=== PATIENT | male | born 1985 | race Caucasian/White ===

== ENCOUNTER → 2017-07-03 11:24 | Outpatient (CLI) | payer BC, SELFPAY ==
--- NOTE | 2017-07-03 11:29 | XR_ITS ---
XR foot LT min 3V HISTORY: Pain following injury ITS.REASON: SPRAIN OF LT FOOT ORDERING PHYSICIAN: Marvin Delaney MD PATIENT AGE: 31 years COMPARISON: None FINDINGS: No fracture or dislocation. No lytic or blastic change. There is normal mineralization.. The joint spaces are well-preserved. No significant degenerative/arthritic changes. No erosive changes evident. IMPRESSION: Negative, no acute finding
== END ==
PROVIDERS: PCP Family Medicine; Visit Provider Family Medicine
DX: S93.602A Unspecified sprain of left foot, initial encounter (principal)
CPT/HCPCS: 73630

== ENCOUNTER → 2017-08-11 09:00 | Outpatient (CLI) | payer BC, SELFPAY ==
--- NOTE | 2017-08-11 09:01 | XR_ITS ---
Left foot Weightbearing Foot 3 Views HISTORY: Pain ORDERING PHYSICIAN: Yina Johnston DPM PATIENT AGE: 32 years COMPARISON: 07-03-17 FINDINGS: There is now evidence of a healing fracture involving the distal shaft of the fourth metatarsal. This was not visible on the previous exam even in retrospect. Callus formation is present at this region. There is pes planus. IMPRESSION: Healing nondisplaced fracture of the distal shaft of the fourth metatarsal
--- NOTE | 2017-08-11 09:01 | XR_ITS ---
Right foot: Weightbearing Foot 3 Views HISTORY: Pain ORDERING PHYSICIAN: Yina Johnston DPM PATIENT AGE: 32 years COMPARISON: None FINDINGS: No fracture or dislocation. No lytic or blastic change. There is normal mineralization.. The joint spaces are well-preserved. No significant degenerative/arthritic changes. No erosive changes evident. IMPRESSION: Negative, no acute finding
== END ==
PROVIDERS: Visit Provider Podiatrist
DX: M79.673 Pain in unspecified foot (principal)
CPT/HCPCS: 73630

== ENCOUNTER → 2017-09-10 07:59 | Outpatient (CLI) | payer BC, SELFPAY ==
--- NOTE | 2017-09-10 07:59 | XR_ITS ---
XR foot wt bearing LT 3V HISTORY: Foot pain, follow-up fracture ITS.REASON: foot pain ORDERING PHYSICIAN: Yina Johnston DPM PATIENT AGE: 32 years COMPARISON: 08/11/2017 FINDINGS: Overall no change in the healing fracture of the fourth metatarsal distal shaft with overlying callus formation. Fracture line is still visible although less apparent on the oblique view. There is good alignment. No other significant anomalies are evident. IMPRESSION: Good alignment healing fracture of the fourth metatarsal tarsal
== END ==
PROVIDERS: Visit Provider Podiatrist
DX: M79.672 Pain in left foot (principal)
CPT/HCPCS: 73630

== ENCOUNTER → 2017-10-14 08:46 | Outpatient (CLI) | payer BC, SELFPAY ==
--- NOTE | 2017-10-14 08:48 | XR_ITS ---
XR foot wt bearing LT 3V HISTORY: Follow-up fracture ITS.REASON: fracture follow up ORDERING PHYSICIAN: Yina Johnston DPM PATIENT AGE: 32 years COMPARISON: 09/10/2017 FINDINGS: Healing fracture involving the distal shaft of the fourth metatarsal with callus formation. Fracture line is somewhat less apparent compared to the previous exam. There is good alignment. IMPRESSION: Good alignment healing fourth metatarsal fracture
== END ==
PROVIDERS: Visit Provider Podiatrist
DX: S92.345A Nondisplaced fracture of fourth metatarsal bone, left foot, initial encounter for closed fracture (principal)
CPT/HCPCS: 73630

== ENCOUNTER → 2017-12-15 16:19 | Outpatient (CLI) | payer BC, SELFPAY ==
--- NOTE | 2017-12-15 16:20 | XR_ITS ---
XR foot wt bearing LT 3V HISTORY: Follow-up fracture ITS.REASON: pain ORDERING PHYSICIAN: Yina Johnston DPM PATIENT AGE: 32 years COMPARISON: None FINDINGS: Cortical thickening involving distal shaft of the fourth tarsal consistent with healed fracture. Fracture line no longer visible. Flexion deformity involving the second toe. IMPRESSION: Healed fracture with good alignment fourth metatarsal
== END ==
PROVIDERS: Visit Provider Podiatrist
DX: M79.672 Pain in left foot (principal)
CPT/HCPCS: 73630

== ENCOUNTER → 2019-03-24 09:16 | Outpatient (CLI) | payer BC, SELFPAY ==
--- NOTE | 2019-03-24 09:26 | XR_ITS ---
PROCEDURE: XR FOOT WT BEARING LT 3V CLINICAL INDICATION: LT FOOT PAIN COMPARISON: [id number] XR foot wt bearing LT 3V from 08/11/2017 FTWBL3 XR foot wt bearing LT 3V from 09/10/2017 FTWBL3 XR foot wt bearing LT 3V from 10/14/2017 FTWBL3 XR foot wt bearing LT 3V from 12/15/2017 FINDINGS: The there is some cortical thickening involving the mid and distal shaft of the 4th metatarsal consistent with an old fracture similar compared to the previous exam of 12/15/2017. No acute fracture or dislocation is evident. No lytic or blastic change. Normal alignment. Other findings:None. IMPRESSION: Old 4th metatarsal fracture. No change with no acute finding Dictated by: Israel Trent MD 03/24/2019 15:51 Electronically signed by Israel Trent MD in [place] 03/24/2019 15:51
--- NOTE | 2019-03-24 09:26 | XR_ITS ---
PROCEDURE: XR ANKLE WT BEARING RT MIN 3V CLINICAL INDICATION: RT ANKLE SWELLING COMPARISON: No exams were available for comparison FINDINGS: No fracture, dislocation, lytic change, or blastic change evident. No significant degenerative change IMPRESSION: Negative right ankle Dictated by: Israel Trent MD 03/24/2019 15:52 Electronically signed by Israel Trent MD in [place] 03/24/2019 15:52
== END ==
PROVIDERS: PCP Family Medicine; Visit Provider Nurse Practitioner Family
DX: M79.672 Pain in left foot (principal); M25.471 Effusion, right ankle
CPT/HCPCS: 73610; 73630

== ENCOUNTER 2020-12-22 16:02 | Emergency (ER) | payer BC, SELFPAY ==
[2020-12-22 16:50] VITALS: BP 138/83; PULSE 78; RESP 18; TEMP 36.8; O2SAT 98; BMI 39.5
[2020-12-22 17:18] VITALS: BP 138/83; PULSE 78; RESP 18; TEMP 36.8; O2SAT 98
--- NOTE | 2020-12-22 17:22 | HMH.EDUTC ---
[facility] [place] Disposition Clinical Impression: Encounter for laboratory testing for COVID-19 virus Disposition: Home, Self-Care Condition on Discharge: Good Instructions: DI for COVID-19 (Suspected or Confirmed ), Coronavirus Disease 2019, Preventing the Spread of Coronavirus Discharge Instructions Additional Instructions: *Monitor Temp, Over the counter Motrin or Tylenol as directed/as needed Tylenol every 4 hours and Motrin every 6 hours (as long as your family doctor has told you that you can take it) for fever or pain. and straight to ER if unable to lower temp less than 101.0 after medication given Follow up IMMEDIATELY for new or worsening symptoms or no Noticeable improvement over the next 48-72 hours. 911 for difficulty breathing or swallowing You were tested for today for COVID19 your test result should be back in the next 24-48 hours, you may call to the [facility] to see if your test results are back in the next 48 hours [phone] [facility] hours are 9am-9pm You was given a handout with instructions for Self Quarantine and Self isolation for while you wait on test results and what to do if they are positive If you are positive the Health Dept will be contacting you also Make sure to take your Vitamins Vit. C Vit D and Zinc if you can take them Referrals: Anna Arias APRN [Primary Care Provider] - As needed Forms: Work/School Release Time of Disposition: 17:23 Medical Decision Making - Jaylan Inquiry Pt receiving controlled substance: No Jaylan was queried for this patient: No Vital Signs: 12/22/20 16:50 12/22/20 17:18 Temperature 98.3 F 98.3 F Temperature Source Oral Pulse Rate 78 Pulse Rate [Right Brachial] 78 Respiratory Rate 18 18 Blood Pressure 138/83 Blood Pressure [Right Arm] 138/83 Blood Pressure Mean [Right Arm] 101 Blood Pressure Source [Right Arm] Automatic Cuff Blood Pressure Position [Right Arm] Sitting 02 Sat by Pulse Oximetry 98 Oxygen Delivery Method Room Air Orders (Tests/Meds): ORDERS Category Date Time Status Covid-19 Nasal PCR ([facility]) Routine Lab 12/22/20 16:[address] [facility] [place] HPI - General Stated complaint: wants covid test Time Seen by Provider: 12/22/20 17:22 Mode of Arrival: Ambulatory Source of Information: Patient Limitations: No Limitations Description of Symptoms (Recalled from Triage Doc. by RN): PATIENT REQUESTING COVID TEST. 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 and lives with her State that he wanted to get tested for COVID Denies any sympotms - Related Data Allergies Allergy/AdvReac Type Severity Reaction Status Date / Time No Known Allergies Allergy Verified 12/07/18 17:20 - Worker's Comp Is this a Worker's Comp case?: No [facility] History - Hepatitis A Screen Drug use history?: No High risk sexual behaviors?: No History of sexually transmitted infection?: No Currently employed?: No Childcare worker?: No Do you have indoor plumbing?: Yes Do you have electricity?: Yes Attestation statement:: This patient has been screened for Hepatitis A risk factors. I have reviewed the patient's past medical history: Yes Medical History: Reports:: Hypertension Denies:: Asthma, Cancer, Chronic Obstructive Pulmonary Disease (COPD), Diabetes Mellitus Type 1, Diabetes Mellitus Type 2, Hyperlipidemia, Myocardial Infarction Other Surgeries: Yes: No Previous Surgery Amputation: No Fractures: Yes (4 TH METATARSAL) - Social History Smoking Status: Former smoker Tobacco Type: cigarettes # Packs/Day (cigarettes): 0 #Yrs smoked (if former smoker): 14 Alcohol Intake: never Alcohol Intake Frequency:: holidays/special occasion
== END 2020-12-22 17:31 | disposition home or self-care (01) ==
PROVIDERS: Emergency Provider Nurse Practitioner; PCP Nurse Practitioner Family
DX: Z20.822 Contact with and (suspected) exposure to COVID-19 (principal); Z87.891 Personal history of nicotine dependence
CPT/HCPCS: 99202; G0463; U0003

== ENCOUNTER 2021-01-07 10:32 | Emergency (ER) | payer BC, SELFPAY ==
--- NOTE | 2021-01-07 12:16 | PC.NURSE ---
called no answer
[2021-01-07 12:22] VITALS: BP 130/85; PULSE 84; RESP 16; TEMP 37.4; O2SAT 98; BMI 39.5
--- NOTE | 2021-01-07 13:42 | HMH.EDUTC ---
[facility] [place] Disposition Clinical Impression: Encounter for laboratory testing for COVID-19 virus Disposition: Home, Self-Care Condition on Discharge: Good Instructions: DI for Allergic Rhinitis, DI for COVID-19 (Suspected or Confirmed ), Preventing the Spread of Coronavirus Discharge Instructions Additional Instructions: *Monitor Temp, Over the counter Motrin or Tylenol as directed/as needed Tylenol every 4 hours and Motrin every 6 hours (as long as your family doctor has told you that you can take it) for fever or pain. and straight to ER if unable to lower temp less than 101.0 after medication given *Warm salt water gargles may help to soothe the throat *Throat Lozenges *Warm fluids like tea with honey may help to soothe the throat *Sleep elevated *Humidifier/Vaporizer *Flonase 2 sprays in each nostril daily but be aware that it may take 2-3 days before you notice improvement Follow up IMMEDIATELY for new or worsening symptoms or no Noticeable improvement over the next 48-72 hours. 911 for difficulty breathing or swallowing You were tested for today for COVID19 your test result should be back in the next 24-48 hours, You was given instructions [facility] for your results if you do not have internet access you may call the [facility] You was given a handout with instructions for Self Quarantine and Self isolation for while you wait on test results and what to do if they are positive If you are positive the Health Dept will be contacting you also Make sure to take your Vitamins Vit. C Vit D and Zinc if you can take them Prescriptions: Fluticasone Propionate [Flonase 50mcg nasal spray 16gm] 1 spr NS DAILY #1 unspec Transmission Status: Pending to [id number] Referrals: Anna Arias APRN [Primary Care Provider] - As needed Forms: Work/School Release Time of Disposition: 13:46 Medical Decision Making - Jaylan Inquiry Pt receiving controlled substance: No Jaylan was queried for this patient: No Vital Signs: 01/07/21 12:22 Temperature 99.3 F Temperature Source Oral Pulse Rate [Radial] 84 Respiratory Rate 16 Blood Pressure [Right Arm] 130/85 Blood Pressure Mean [Right Arm] 100 Blood Pressure Position [Right Arm] Sitting 02 Sat by Pulse Oximetry 98 Oxygen Delivery Method Room Air Orders (Tests/Meds): ORDERS Category Date Time Status Covid-19 Nasal PCR ([facility]) Routine Lab 01/07/21 12:19 Received Covid-19 Nasal PCR ([facility]) Routine Lab 01/07/21 12:19 Received [facility] [place] HPI - General Stated complaint: wants Covid test Time Seen by Provider: 01/07/21 13:42 Mode of Arrival: Ambulatory Source of Information: Patient Limitations: No Limitations Description of Symptoms (Recalled from Triage Doc. by RN): to [facility] [place] with c/o headache, congestion, cough, exposed to covid, pt also c/o rt ear pain starting yesterday. HEENT Symptoms (Recalled from RN notes): No Resp Symptoms (Recalled from RN notes): Yes Skin Symptoms (Recalled from RN notes): No MS Symptoms (Recalled from RN notes): No Functional Status (Recalled from RN notes): na - History of Present Illness Provider Complaint: Patient states that he has been exposed to someone with COVID State that he has been having headache, nasal congestion and pain in his right ear States that pain in ear started yesterday and he wanted to get it checked - Related Data Previous Rx's Medication Instructions Recorded Fluticasone Propionate [Flonase 1 spr NS DAILY #1 unspec 01/07/21 50mcg nasal spray 16gm] Allergies Allergy/AdvReac Type Severity Reaction Status Date / Time No Known Allergies Allergy Verified 12/07/18 17:20 - Worker's Comp Is this a Worker's Comp case?: No [facility] History - Hepatitis A Screen Drug use history?: No High risk sexual behaviors?: No History of sexually transmitted infection?: No Currently employed?: No Childcare worker?: No Do you have indoor plumbing?: Yes Do you have electricity?: Yes Attestation statela
[2021-01-07 13:46] VITALS: BP 130/85; PULSE 84; RESP 16; TEMP 37.4; O2SAT 98
== END 2021-01-07 13:50 | disposition home or self-care (01) ==
PROVIDERS: Emergency Provider Nurse Practitioner; PCP Nurse Practitioner Family
DX: U07.1 COVID-19 (principal)
CPT/HCPCS: 99202; G0463; U0003

== ENCOUNTER 2021-11-07 13:01 | Emergency (ER) | payer BC, SELFPAY ==
--- NOTE | 2021-11-07 13:16 | XR_ITS ---
FINAL REPORT CLINICAL HISTORY: pain; no known injury. pt states that the lateral aspect of his wrist has been hurting more in the last 2 days. FINDINGS: 3 views of the right wrist were obtained. There is no acute fracture or dislocation. The joint spaces are intact. There is no soft tissue abnormality. IMPRESSION: No acute abnormality. Reviewed, Interpreted and Dictated by Ricco Espinoza III, MD Transcribed by Yang Woods Authenticated and [facility]
[2021-11-07 13:19] VITALS: BP 142/86; PULSE 71; RESP 18; TEMP 36.8; O2SAT 97; BMI 39.9
--- NOTE | 2021-11-07 13:22 | HMH.EDUTC ---
[facility] [place] Disposition Clinical Impression: Right wrist tendonitis, Right wrist pain Disposition: Home, Self-Care Condition on Discharge: Good Instructions: Tendinopathy, DI for Tendinitis Additional Instructions: Rest the extremity, Elevate the extremity as tolerated while you are resting. Take ibuprofen for pain. I sent in a prescription to your pharmacy. Follow up with Dr. Moreno (orthopedics). I put in a referral but you need to call his office and schedule an appointment. Follow up with your regular doctor. GO TO THE ER FOR ANY WORSENING SYMPTOMS Prescriptions: Ibuprofen [Ibuprofen 800mg Tablet] 800 mg PO Q8HP PRN #30 tab PRN Reason: Moderate Pain Transmission Status: Received by [id number] Referrals: Provider,MD Wild [Primary Care Provider] - Fidel Moreno MD [Staff Physician] - Forms: Work/School Release Time of Disposition: 13:56 Medical Decision Making - Medical Records Medical records reviewed: No: I reviewed the patient's medical records. - Jaylan Inquiry Pt receiving controlled substance: No Vital Signs: 11/07/21 13:19 11/07/21 14:01 Temperature 98.2 F 98.2 F Temperature Source Oral Pulse Rate 71 Pulse Rate [Left] 71 Respiratory Rate 18 18 Blood Pressure 142/86 H Blood Pressure [Right Arm] 142/86 H Blood Pressure Mean [Right Arm] 104 02 Sat by Pulse Oximetry 97 - Radiology Data #1 Image(s): Wrist Image Reviewed: Yes I reviewed the patient's radiology image, Yes I have reviewed radiologist's interpretation Preliminary Findings: Normal/NAD, No Fracture Seen FINAL REPORT CLINICAL HISTORY: pain; no known injury. pt states that the lateral aspect of his wrist has been hurting more in the last 2 days. FINDINGS: 3 views of the right wrist were obtained. There is no acute fracture or dislocation. The joint spaces are intact. There is no soft tissue abnormality. IMPRESSION: No acute abnormality. Reviewed, Interpreted and Dictated by Ricco Espinoza III, MD Transcribed by Yang Woods Authenticated and [facility] HPI - General Stated complaint: rt wrist pain Time Seen by Provider: 11/07/21 13:28 Description of Symptoms (Recalled from Triage Doc. by RN): patient comes in today with complaints of right wrist pain. patient has had no known injury. pain began thursday. HEENT Symptoms (Recalled from RN notes): No Resp Symptoms (Recalled from RN notes): No Skin Symptoms (Recalled from RN notes): No MS Symptoms (Recalled from RN notes): Yes Functional Status (Recalled from RN notes): wnl - History of Present Illness Provider Complaint: He states that he has had right wrist pain for the past 2 days. He denies any known injury. He states that it just started him hurting when he was using it a lot at home. - Related Data Previous Rx's Medication Instructions Recorded Fluticasone Propionate [Flonase 1 spr NS DAILY #1 unspec 01/07/21 50mcg nasal spray 16gm] Ibuprofen [Ibuprofen 800mg 800 mg PO Q8HP PRN #30 tab 11/07/21 Tablet] Allergies Allergy/AdvReac Type Severity Reaction Status Date / Time No Known Allergies Allergy Verified 11/07/21 13:23 - Worker's Comp Is this a Worker's Comp case?: No [facility] History - Hepatitis A Screen Attestation statement:: This patient has been screened for Hepatitis A risk factors. I have reviewed the patient's past medical history: Yes Medical History: Reports:: Hypertension Denies:: Asthma, Cancer, Chronic Obstructive Pulmonary Disease (COPD), Diabetes Mellitus Type 1, Diabetes Mellitus Type 2, Hyperlipidemia, Myocardial Infarction Other Surgeries: Yes: No Previous Surgery Amputation: No Fractures: Yes (4 TH METATARSAL) - Social History Smoking Status: Former smoker Tobacco Type: cigarettes # Packs/Day (cigarettes): 0 #Yrs smoked (if former smoker): 14 Alcohol Intake: ne
[2021-11-07 14:01] VITALS: BP 142/86; PULSE 71; RESP 18; TEMP 36.8
== END 2021-11-07 14:02 | disposition home or self-care (01) ==
PROVIDERS: Emergency Provider Nurse Practitioner Family
DX: M67.833 Other specified disorders of tendon, right wrist (principal)
CPT/HCPCS: 29125; 73110; 99212; G0463

== ENCOUNTER 2022-03-28 15:35 | Emergency (ER) | payer BC, SELFPAY ==
[2022-03-28 16:07] VITALS: PULSE 67; RESP 16; TEMP 37.1; O2SAT 100; BMI 39.1
--- NOTE | 2022-03-28 16:49 | EXP.UTC ---
Discharge Plan Disposition Patient Disposition: Home, Self-Care Condition: Good Prescriptions Prescriptions: New amoxicillin [amoxicillin] 500 mg tablet 500 mg PO TID 10 Days Qty: 30 0RF methylprednisolone 4 mg Tablets,Dose Pack 4 mg PO DIRECTED Qty: 21 0RF igrnktdiugzklco-woiwdmneu-OV [Bromfed DM] 2-30-10 mg/5 mL Syrup 5 ml PO Q6H PRN (Reason: Cough) Qty: 240 0RF No Action famotidine 20 mg Tablet 20 mg PO DAILY aspirin 81 mg Tablet,Chewable 81 mg PO DAILY levocetirizine [Xyzal] 5 mg Tablet 5 mg PO DAILY Referrals Follow up/Referrals: Geovanny White MD [Primary Care Provider] - See instructions Activity Restrictions/Add. Instructions Additional Instructions/Restrictions: Drink plenty of fluids. Take tylenol or ibuprofen for pain or fever. Follow up with your regular doctor. GO TO THE ER FOR ANY WORSENING SYMPTOMS Clinical Impressions Clinical Impression: Otitis media Instructions Patient Instructions: Middle Ear Infection Discharge ED Provider: Judd Bhatia [facility] General Stated complaint: RT ear pain Mode of Arrival: Ambulatory Source of Information: Patient Limitations: No Limitations Time Seen by Provider: 03/28/22 16:49 Description of Symptoms (Recalled from Triage Doc. by RN): pt c/o pain in his right ear that runs down into his neck, behind his ear and eye HEENT Symptoms (Recalled from RN notes): Yes (right ear pain) Resp Symptoms (Recalled from RN notes): No Skin Symptoms (Recalled from RN notes): No MS Symptoms (Recalled from RN notes): No Functional Status (Recalled from RN notes): na History of Present Illness Provider Complaint: He c/o bilateral ear pain for the past 4 days. HIs right ear is worse than his left. Related Data Home Medications Medication Instructions Recorded Confirmed aspirin 81 mg chewable tablet 81 mg PO DAILY VARICOSE VEINS 03/28/22 03/28/22 famotidine 20 mg tablet 20 mg PO DAILY GERD 03/28/22 03/28/22 levocetirizine 5 mg tablet (Xyzal) 5 mg PO DAILY Allergy symptoms 03/28/22 03/28/22 Previous Rx's Medication Instructions Recorded amoxicillin 500 mg tablet 500 mg PO TID 10 days #30 tabs 03/28/22 exiqonnsnwmodlj-gfwabjuqlxnynmf-EK 5 ml PO Q6H PRN Cough #240 mL 03/28/22 2 mg-30 mg-10 mg/5 mL oral syrup (Bromfed DM) methylprednisolone 4 mg tablets in 4 mg PO DIRECTED #21 tabs 03/28/22 a dose pack Allergies Allergy/AdvReac Type Severity Reaction Status Date / Time No Known Allergies Allergy Verified 11/07/21 13:23 Worker's Comp Is this a Worker's Comp case?: No PFSH PFSH Medical History Anxiety Kidney stone Urinary tract infection Social History Smoking Status: Former smoker pack-years: 14 alcohol intake: never current occupational status: employed Travel in the last 8 weeks: None ROS Obtained: Yes All systems reviewed & no additional complaints except as documented Constitutional Constitutional: Denies chills, Reports fever(s) and Reports poor appetite Eyes Eyes: Denies eye discharge ENT Ears, Nose, Mouth, and Throat: Denies ear discharge, Reports otalgia, Denies hearing loss, Denies sinus pain and Reports sore throat Cardiovascular Cardiovascular: Denies chest pain and Denies dyspnea Respiratory Respiratory: Denies chest congestion, Reports cough and Denies dyspnea Gastrointestinal Gastrointestingal: Denies abdominal pain, diarrhea, nausea or vomiting Musculoskeletal Musculoskeletal: Denies arthralgias Integumentary/Breasts Skin/Breast: Denies rash Physical Exam General General appearance: alert and in no apparent distress Head Head exam: atraumatic, normocephalic and normal inspection Eye Eye exam: Present normal appearance, PERRL and EOMI ENT ENT exam: Present mucous membranes moist and normal external ear exam Expanded ENT Exam TM/Canal exam: Bilateral TM: joseph
[2022-03-28 16:51] VITALS: BP 0/0; PULSE 67; RESP 16; TEMP 37.1; O2SAT 100
== END 2022-03-28 17:52 | disposition home or self-care (01) ==
PROVIDERS: Emergency Provider Nurse Practitioner Family; PCP Family Medicine
DX: H66.90 Otitis media, unspecified, unspecified ear (principal)
CPT/HCPCS: 99212; G0463

== ENCOUNTER 2022-08-02 06:23 | Emergency (ER) | payer BC, SELFPAY ==
[2022-08-02] VITALS (9 sets, daily range): BP systolic 121–148; BP diastolic 69–82; PULSE 61–98; RESP 16–17; TEMP 36.6; O2SAT 93–100; BMI 42.0
--- NOTE | 2022-08-02 06:44 | CT_ITS ---
PROCEDURE INFORMATION: Exam: CT Abdomen And Pelvis With Contrast Exam date and time: 08/02/2022 7:09 AM Age: 36 years old Clinical indication: Abdominal pain; Generalized; Additional info: Abd pain TECHNIQUE: Imaging protocol: Computed tomography of the abdomen and pelvis with contrast. Radiation optimization: All CT scans at this facility use at least one of these dose optimization techniques: automated exposure control; mA and/or kV adjustment per patient size (includes targeted exams where dose is matched to clinical indication); or iterative reconstruction. Contrast material: ISOVUE; Contrast volume: 75 ml; Contrast route: IV; REPORTING DATA: Count of CT and Cardiac NM exams in prior 12 months: This patient has received 0 known CTs and 0 known cardiac nuclear medicine studies in the 12 months prior to the current study. COMPARISON: No relevant prior studies available. FINDINGS: Diaphragm: A small hiatal hernia is present. Liver: Normal. No mass. Gallbladder and bile ducts: Multiple small stones in the gallbladder neck, the gallbladder is otherwise unremarkable. There is no evidence of biliary ductal dilation. Pancreas: Normal. No ductal dilation. Spleen: The spleen is normal. An accessory splenule is present. Adrenal glands: Normal. No mass. Kidneys and ureters: Normal. No hydronephrosis. Stomach and bowel: The stomach is decompressed. Extensive diverticulosis throughout the colon. Edema surrounds the mid descending colon consistent with acute diverticulitis. No diverticular abscess or perforation evident. There is no evidence of intestinal perforation or obstruction. Appendix: A normal appendix is identified. Intraperitoneal space: Unremarkable. No free air. No significant fluid collection. Vasculature: The aorta is normal. Lymph nodes: Mildly prominent likely reactive lymph nodes in the left abdomen. No lymphadenopathy. Urinary bladder: Unremarkable as visualized. Reproductive: Unremarkable as visualized. Bones/joints: Unremarkable. No acute fracture. Soft tissues: Unremarkable. IMPRESSION: 1. Acute diverticulitis involving the mid descending colon. No diverticular abscess or perforation evident. 2. Cholelithiasis. 3. A small hiatal hernia is present.
[2022-08-02 06:51] LABS: Microscopic, Urine URINE MICROSCOPIC (MICROSCOPIC)
[2022-08-02 06:53] LABS: Basophils # 0.1 K/mm3 (0-0.2); Basophils % 0.8 % (0.1-2.0); Eosinophils # 0.2 K/mm3 (0.0-0.4); Eosinophils % 2.1 % (0.1-12.0); Hematocrit 48.3 % (42.0-52.0); Hemoglobin 15.1 g/dL (14.1-18.0); Lymphocytes % 19.9 % (10-50); Mean Corpuscular HGB Conc 31.3 g/dL (31.8-35.4); Mean Corpuscular Hemoglobin 28.8 pg (27.0-31.2); Mean Platelet Volume 7.5 fl (7.4-10.4); Monocytes # 0.7 K/mm3 (0.1-1.0); Neutrophils # 7.1 K/mm3 (1.8-7.8); Neutrophils % 70.1 % (37.0-80.0); Platelet Count 250 K/mm3 (142-424); Red Blood Count 5.26 M/mm3 (4.60-6.20); White Blood Count 10.2 K/mm3 (4.8-10.8)
[2022-08-02 06:55] LABS: Chloride 105 mmol/L (98-107); Sodium 139 mmol/L (136-145)
[2022-08-02 06:58] LABS: Alanine Aminotransferase 25 U/L (12-78); Alkaline Phosphatase 57 U/L (38-126); Amylase 54 U/L (30-110); Appearance,Urine CLEAR (Clear); Aspartate Amino Transferase 26 U/L (17-59); Bilirubin,Urine Negative (Negative); Blood Urea Nitrogen 8 mg/dl (9-20); Blood, Urine Negative (Negative); Carbon Dioxide 28 mmol/L (22.0-30.0); Color,Urine YELLOW (Yellow); Creatinine Clearance Estimated 147 mL/min (50-200); Estimated Glomerular Filt Rate 128 ml/min (>60); GFR (African American) 155 ML/MIN (>60); Glucose 121 mg/dl (74-100); Glucose,Urine (UA) Negative (Negative); Ketones,Urine Negative (Negative); Leukocyte Esterase,Urine Negative (Negative); Lipase 53 U/L (23-300); Nitrate,Urine Negative (Negative); PH,Urine 7.5 (5.0-8.5); Protein,Urine Negative (Negative); Urobilinogen,Urine 0.2 EU/dl (0.2)
[2022-08-02 06:59] LABS: Albumin Level 4.5 g/dl (3.5-5.0); Albumin/Globulin Ratio 1.4 (1.1-1.8); Globulin 3.3 g/dL (1.3-3.2); Total Protein,Serum 7.8 g/dl (6.3-8.2)
--- NOTE | 2022-08-02 07:02 | HMH.EDUROGM ---
Discharge Plan Disposition Patient Disposition: Home, Self-Care Prescriptions Prescriptions: New amoxicillin-pot clavulanate [Augmentin] 500-125 mg tablet 1 tab PO TID Qty: 30 0RF Referrals Follow up/Referrals: Geovanny White MD [Primary Care Provider] - See instructions Clinical Impressions Clinical Impression: Diverticulitis Instructions Patient Instructions: DI for Acute Abdominal Pain Discharge ED Provider: Nico Bledsoe Male Urogenital HPI General Chief complaint: Abdominal Pain Stated complaint: Left side abdominal pain Time Seen by Provider: 08/02/22 07:03 Mode of Arrival: Family Vehicle Source of Information: Patient Limitations: No Limitations Description of Symptoms (Recalled from ER Triage Doc. by RN): 36 yo male presents with CC of left side pain that radiates into his groin; reports increases when I sometimes move, and also when I cough ; denies dysuria, voided on command for urinalysis. PMH: seasonal allergies and acid reflex; Med: pepcid, zyrtec. Report last normal bowel movement on Thursday (I usually go 4x daily and haven't been, I didn't have an appetite this morning and was slightly nauseated). Afebrile. NKA.Daily smoker for anxiety relief. History of Present Illness HPI Narrative: 36-year-old white male presents with a complaint of left lateral abdominal pain radiating down toward his left suprapubic and genital area. The patient notes increased pain with movement and coughing etc. He has had no dysuria no frequency of urine. He is status post kidney stone evaluated by CT in the past. He reports no medical allergies he has however been treated for seasonal allergies and what sounds to be epigastric symptoms. He denies hypertension diabetes hypercholesterolemia. Related Data Previous Rx's Medication Instructions Recorded amoxicillin 500 mg-potassium 1 tab PO TID #30 tabs 08/02/22 clavulanate 125 mg tablet (Augmentin) Allergies Allergy/AdvReac Type Severity Reaction Status Date / Time No Known Allergies Allergy Verified 11/07/21 13:23 [facility] Disclaimer: The information contained in this section may have been updated after the patient was seen, as this information can be updated by other users. Medical History Anxiety Kidney stone Urinary tract infection Social History Smoking Status: Current every day smoker tobacco type: cigarettes packs per day: 0 alcohol intake: never current occupational status: employed Travel in the last 8 weeks: None ROS Obtained: Yes All systems reviewed & no additional complaints except as documented Physical Exam General General appearance: alert and in no apparent distress Head Head exam: atraumatic and normocephalic Eye Eye exam: Present normal appearance and PERRL Neck Neck exam: Present normal inspection Chest Chest inspection: Present normal inspection Respiratory Respiratory exam: Present normal lung sounds bilaterally; Absent respiratory distress Cardiovascular Cardiovascular exam: Present regular rate and normal rhythm Abdominal Exam Abdominal exam: Present soft, tenderness (Left lateral abdomen in the left suprapubic area) and normal bowel sounds exam: Present deferred Extremities Exam Extremities exam: Present normal inspection and full ROM; Absent tenderness or edema Back Exam Back exam: Present normal inspection; Absent CVA tenderness (R) or CVA tenderness (L) Neurological Exam Neurological exam: Present alert, oriented X3 and CN II-XII intact; Absent motor sensory deficit Skin Skin exam: Present warm, dry and intact Medical Decision Making Medical Records MR Comment: 36-year-old white male presents with abdominal pain left side he has had a kidney stone in the past he thinks this may be the etiology. No fever chills he does have a little nausea and some discomfort with it. Evaluations included
--- NOTE | 2022-08-02 07:04 | PC.NURSE ---
pt to radiology
[2022-08-02 07:39] LABS: Squamous Epithelial Cell,Urine Occasional #/hpf (0-5); WBC,Urine Occasional #/hpf (0-3)
--- NOTE | 2022-08-02 09:50 | PC.NURSE ---
rounded on pt, meal tray ordered and water given. MD ricoayed
--- NOTE | 2022-08-02 10:05 | PC.NURSE ---
meal tray delivered
== END 2022-08-02 10:22 | disposition home or self-care (01) ==
PROVIDERS: Emergency Provider Emergency Medicine; PCP Family Medicine
DX: K57.32 Diverticulitis of large intestine without perforation or abscess without bleeding (principal)
CPT/HCPCS: 74177; 80053; 81001; 82150; 83690; 85025; 96360; 96374; 96375; 99284; 99285; J0696; J2405; Q9967